=== PATIENT | male | born 1960 | race Caucasian/White ===

== ENCOUNTER → 2021-06-28 | Outpatient (CLI) | payer BC ==
--- NOTE | 2021-06-28 09:23 | XR ---
EXAMINATION TYPE: XR foot complete LT DATE OF EXAM: 06/28/2021 COMPARISON: NONE HISTORY: Pain TECHNIQUE: Three views are submitted. FINDINGS: The osseous structures are intact. There is no acute fracture or dislocation. Arthropathy of the f irst MTP joint. There is soft tissue edema overlying the third digit. Increased density of the distal phalanx noted. Recommend triple phase bone scan to assess for osteomyelitis. IMPRESSION: 1. Soft tissue edema overlying the distal third digit with increased density throughout the distal ph alanx recommend triple phase bone scan to assess for osteomyelitis.
--- NOTE | 2021-06-28 14:11 | NM ---
EXAMINATION TYPE: NM bone 3 phase DATE OF EXAM: 06/28/2021 COMPARISON: X-ray 06/28/2020 HISTORY: Swelling left third toe Triple phase bone scintigraphy was performed following the injection of 23.0 mCi Tc 99m MDP. Immedia te images and 4 hours post injection images acquired. FINDINGS: Increased flow to the distal left. There is increased soft tissue uptake within the soft tissues of t he distal left third toe. Delayed images demonstrate increased uptake involving the distal margin lef t third toe. There also is abnormal uptake involving the right first MTP joint. IMPRESSION: 1. Cellulitis with osteomyelitis distal phalanx left third toe 2. Probable arthropathy of the right first MTP joint. No x-rays available for comparison
== END | disposition home or self-care (01) ==
LOC: RADNMMAIN 07:16
PROVIDERS: ATTEND Podiatrist Foot & Ankle Surgery
DX: L03.032 Cellulitis of left toe (principal); M86.8X7 Other osteomyelitis, ankle and foot
CPT/HCPCS: 73630; 78315; A9503

== ENCOUNTER 2022-05-14 00:30 | Emergency (ER) | payer BC ==
[2022-05-14 00:46] VITALS: RESP 18; TEMP 97.8
[2022-05-14] MEDS ORDERED: SODIUM CHLORIDE 0.9% 1,000 ML IV STA (01:08)
--- NOTE | 2022-05-14 01:16 | ED ---
General Adult HPI - General Chief complaint: Recheck/Abnormal Lab/Rx Stated complaint: High Blood Pressure, Headache, facial numbness Time Seen by Provider: 05/14/22 00:50 Source: patient, RN notes reviewed Mode of arrival: ambulatory Limitations: no limitations - History of Present Illness Initial comments: 62-year-old male presents to the emergency department for evaluation of symptoms that resolved prior to arrival. Patient states this evening he was out in the [place] with his buddies when he experienced an onset of head pressure, lightheadedness, and numbness to the mouth. He walked back to his vehicle and went to the local [facility] where his blood pressure was found to be elevated. Reports his symptoms were somewhat worsened with lateral movement of his eyes. States he then drove 2 hours home and then decided to come to the emergency department for evaluation. Patient states he does have a history of high blood pressure and takes a daily medication which he missed a dose tonight. Current symptoms include mild posterior headache and slight residual numbness to his lips. At this time, patient denies fever, chills, blurry vision, dizziness, confusion, chest pain, difficulty breathing, shortness of breath, abdominal nikolay n, nausea, vomiting, diarrhea, dysuria, weakness, or poor coordination. - Related Data Home Medications Medication Instructions Recorded Confirmed amLODIPine BESYLATE [Norvasc] 10 mg PO DAILY 01/24/15 02/07/16 Aspirin 81 mg PO DAILY 01/25/15 02/07/16 Levothyroxine Sodium [Synthroid] 75 mcg PO DAILY 01/26/16 02/07/16 lisinopriL [Zestril] 10 mg PO DAILY 01/26/16 02/07/16 Allergies Allergy/AdvReac Type Severity Reaction Status Date / Time adhesive Allergy Unknown BLISTERS Verified 05/14/22 00:46 FROM CARDIAC ELECTRODES. Review of Systems ROS Statement: Those systems with pertinent positive or pertinent negative responses have been documented in the HPI. ROS Other: All systems not noted in ROS Statement are negative. Past Medical History Past Medical History: Hypertension, Thyroid Disorder Additional Past Medical History / Comment(s): HYPOTHYROID, BIT HIS TONGUE A WEEK AGO AND SOME OF THE TISSUE IS PROTRUDING. History of Any Multi-Drug Resistant Organisms: None Reported Past Surgical History: No Surgical Hx Reported Additional Past Surgical History / Comment(s): COLONOSCOPY Past Anesthesia/Blood Transfusion Reactions: No Reported Reaction Past Psychological History: No Psychological Hx Reported Smoking Status: Never smoker Past Alcohol Use History: Occasional Past Drug Use History: None Reported - Past Family History Father Family Medical History: Cancer Additional Family Medical History / Comment(s): STOMACH CANCER Mother Family Medical History: Coronary Artery Disease (CAD), Myocardial Infarction ([place]) General Exam Limitations: no limitations (This is a well-developed, well-nourished male in no acute distress. Initial temperature 97.8, pulse 90, respirations 18, blood pressure 134/81, pulse ox 100% on room air.) General appearance: alert, in no apparent distress Head exam: Present: atraumatic, normocephalic, normal inspection Eye exam: Present: normal appearance, PERRL, EOMI. Absent: scleral icterus, conjunctival injection, periorbital swelling, periorbital tenderness ENT exam: Present: normal exam, normal oropharynx, mucous membranes moist, TM's normal bilaterally Neck exam: Present: normal inspection, full ROM. Absent: tenderness, meningismus, lymphadenopathy Respiratory exam: Present: normal lung sounds bilaterally. Absent: respiratory distress, wheezes, rales, rhonchi, stridor, chest wall tenderness Cardiovascular Exam: Present: regular rate, normal rhythm, normal heart sounds. Absent: systolic murmur, diastolic murmur, rubs, gallop, clicks GI/Abdominal exam: Present: soft, normal bowel sounds. Absent: distended, tenderness, guarding, rebound, rigid Extremities exam: Present: normal inspection, full ROM, normal capillary refill. Absent: pedal edema Back exam: Present: normal inspection, full ROM. Absent: CVA tenderness (R), CVA tenderness (L) Neurological exam: Present: alert, oriented X3, CN II-XII intact, normal gait Expanded Patient oriented to: Present: person, place, time Speech: Present: fluid speech Cranial nerves: EOM's Intact: Normal, Tongue Deviation: Normal, Nystagmus: Normal, Facial Palsy with Forehead Movement: Normal Cerebellar function: Romberg: Normal Upper motor neuron: Pronator Drift: Normal Motor strength exam: RUE: 5, LUE: 5, RLE: 5, LLE: 5 Eye Response: (4) open spontaneously Motor Response: (6) obeys commands Verbal Response: (5) oriented Valier Total: 15 Psychiatric exam: Present: normal affect, normal mood Skin exam: Present: warm, dry, intact, normal color. Absent: rash Course Vital Signs 05/14/22 05/14/22 05/14/22 00:42 01:45 02:00 Temperature 97.8 F Pulse Rate 90 74 76 Respiratory 18 Rate Blood Pressure 134/81 144/88 150/87 O2 Sat by Pulse 100 98 Oximetry 05/14/22 05/14/22 03:00 04:42 Temperature Pulse Rate 76 74 Respiratory Rate Blood Pressure 150/87 110/68 O2 Sat by Pulse Oximetry - Reevaluation(s) Reevaluation #1: 05/14/22 03:12 Patient continues to rest comfortably with no return of symptoms. He was given Tylenol for residual headache with improvement. Able to tolerate oral intake without difficulty. He will be discharged home to follow-up with. Patient is agreeable with this plan of care. Medical Decision Making - Medical Decision Making This is a pleasant 62-year-old male with a history of hypertension who presents to the emergency department for evaluation of symptoms that resolved prior to arrival. Patient reports elevated blood pressure accompanied by posterior headache and a sense of lightheadedness that occurred while he was outdoors hunting this evening. States after traveling 2 hours home his symptoms improved, but was concerned therefore came to the ED for evaluation. Upon exam, patient is well appearing and in not acute distress. He has no focal neurological deficits. Initial blood pressure is 134/81. EKG shows normal sinus rhythm area and chest x-ray is unremarkable. CT of the brain is negative. Laboratory studies were reviewed and are within normal limits. Patient was given Tylenol for mild headache with improvement. Discussed workup with patient explaining that there were no symptoms or exam findings concerning for TIA or CVA. Per his history, there is some suspicion that this was an episode of vertigo with spontaneous resolution. He will be discharged home to continue t aking his home medications as prescribed and to follow up with his PCP within the next 48 hours. Strict return parameters were discussed in detail. Patient verbalizes understanding and agrees with this plan. Attending: Robina. - Lab Data Result diagrams: 05/14/22 01:25 05/14/22 01:25 Lab Results 05/14/22 05/14/22 05/14/22 Range/Units 01:25 01:25 01:25 WBC 7.5 (3.8-10.6) k/uL RBC 5.28 (4.30-5.90) m/uL Hgb 15.0 (13.0-17.5) gm/dL Hct 45.7 (39.0-53.0) % MCV 86.6 (80.0-100.0) fL MCH 28.3 (25.0-35.0) pg MCHC 32.7 (31.0-37.0) g/dL RDW 12.6 (11.5-15.5) % Plt Count 208 (150-450) k/uL MPV 7.4 Neutrophils % 82 % Lymphocytes % 10 % Monocytes % 6 % Eosinophils % 0 % Basophils % 1 % Neutrophils # 6.1 (1.3-7.7) k/uL Lymphocytes # 0.8 L (1.0-4.8) k/uL Monocytes # 0.5 (0-1.0) k/uL Eosinophils # 0.0 (0-0.7) k/uL Basophils # 0.1 (0-0.2) k/uL PT (9.0-12.0) sec INR (<1.2) Sodium 137 (137-145) mmol/L Potassium 3.5 (3.5-5.1) mmol/L Chloride 104 (98-107) mmol/L Carbon Dioxide 24 (22-30) mmol/L Anion Gap 9 mmol/L BUN 13 (9-20) mg/dL Creatinine 0.98 (0.66-1.25) mg/dL Est GFR (CKD-EPI)AfAm >90 (>60 ml/min/1.73 sqM) Est GFR (CKD-EPI)NonAf 83 (>60 ml/min/1.73 sqM) Glucose 108 H (74-99) mg/dL Calcium 8.8 (8.4-10.2) mg/dL Total Bilirubin 1.2 (0.2-1.3) mg/dL AST 28 (17-59) U/L ALT 32 (4-49) U/L Alkaline Phosphatase 84 (38-126) U/L Troponin I <0.012 (0.000-0.034) ng/mL Total Protein 7.4 (6.3-8.2) g/dL Albumin 4.5 (3.5-5.0) g/dL 05/14/22 Range/Units 01:50 WBC (3.8-10.6) k/uL RBC (4.30-5.90) m/uL Hgb (13.0-17.5) gm/dL Hct (39.0-53.0) % MCV (80.0-100.0) fL MCH (25.0-35.0) pg MCHC (31.0-37.0) g/dL RDW (11.5-15.5) % Plt Count (150-450) k/uL MPV Neutrophils % % Lymphocytes % % Monocytes % % Eosinophils % % Basophils % % Neutrophils # (1.3-7.7) k/uL Lymphocytes # (1.0-4.8) k/uL Monocytes # (0-1.0) k/uL Eosinophils # (0-0.7) k/uL Basophils # (0-0.2) k/uL PT 11.0 (9.0-12.0) sec INR 1.0 (<1.2) Sodium (137-145) mmol/L Potassium (3.5-5.1) mmol/L Chloride (98-107) mmol/L Carbon Dioxide (22-30) mmol/L Anion Gap mmol/L BUN (9-20) mg/dL Creatinine (0.66-1.25) mg/dL Est GFR (CKD-EPI)AfAm (>60 ml/min/1.73 sqM) Est GFR (CKD-EPI)NonAf (>60 ml/min/1.73 sqM) Glucose (74-99) mg/dL Calcium (8.4-10.2) mg/dL Total Bilirubin (0.2-1.3) mg/dL AST (17-59) U/L ALT (4-49) U/L Alkaline Phosphatase (38-126) U/L Troponin I (0.000-0.034) ng/mL Total Protein (6.3-8.2) g/dL Albumin (3.5-5.0) g/dL - EKG Data EKG shows normal: sinus rhythm Rate: normal EKG Comments: EKG obtained at 01:20 shows sinus rhythm with nonspecific T-wave abnormality. Ventricular rate 90, IA interval 162, QRS duration 83, QT/QTC 354/402. Interpretation borderline ECG. - Radiology Data Radiology results: report reviewed, image reviewed CT of the brain without contrast was obtained. Report was reviewed in its entirety. Impression per Dr. Dawson is negative unenhanced head CT scan. Two-view chest x-ray was obtained. Report was reviewed in its entirety. Impression per Dr. Dawson is normal chest. No change. Disposition Clinical Impression: Episodic lightheadedness Disposition: HOME SELF-CARE Condition: Stable Instructions (If sedation given, give patient instructions): Vertigo (ED) Additional Instructions: Continue taking your home medications as prescribed. Follow-up with your PCP as scheduled today. Return to the emergency department with any new, worsening, or concerning symptoms including confusion, speech changes, weakness, or return of symptoms. Is patient prescribed a controlled substance at d/c from ED?: No Referrals: Pasha Fuentes MD [REFERRING] - 1-2 days Time of Disposition: 04:13
[2022-05-14 01:45] LABS: Basophils # (A) 0.1 k/uL (0-0.2); Basophils % (A) 1 %; Eosinophils % (A) 0 %; HCT 45.7 % (39.0-53.0); Lymphocytes # (A) 0.8 k/uL (1.0-4.8); Lymphocytes % (A) 10 %; MCH 28.3 pg (25.0-35.0); MCHC 32.7 g/dL (31.0-37.0); MCV 86.6 fL (80.0-100.0); Mean Platelet Volume 7.4; Monocytes # (A) 0.5 k/uL (0-1.0); Monocytes % (A) 6 %; Neutrophils # (A) 6.1 k/uL (1.3-7.7); Neutrophils % (A) 82 %; Platelet Count 208 k/uL (150-450); RBC 5.28 m/uL (4.30-5.90); RDW 12.6 % (11.5-15.5); WBC 7.5 k/uL (3.8-10.6)
--- NOTE | 2022-05-14 01:47 | XR ---
EXAMINATION TYPE: XR chest 2V DATE OF EXAM: 05/14/2022 COMPARISON: 01/24/2015 HISTORY: Chest pain. Short of breath TECHNIQUE: FINDINGS: Heart and mediastinum are normal. Lungs are clear. Diaphragm is normal. Bony thorax appears normal. IMPRESSION: Normal chest. No change.
--- NOTE | 2022-05-14 01:51 | CT ---
EXAMINATION TYPE: CT brain wo con DATE OF EXAM: 05/14/2022 COMPARISON: None HISTORY: high blood pressure, lips tingling, headache. CT DLP: 1172.7 mGycm Automated exposure control for dose reduction was used. Ventricles and sulci appear normal. There is no mass effect or midline shift. There is no sign of int racranial hemorrhage. Calvarium is intact. There is normal aeration of the mastoid sinuses. IMPRESSION: Negative unenhanced head CT scan.
[2022-05-14 01:54] LABS: ALT 32 U/L (4-49); AST 28 U/L (17-59); African American GFR (CKD) >90 (>60 ml/min/1.73 sqM); Albumin 4.5 g/dL (3.5-5.0); Alkaline Phosphatase 84 U/L (38-126); Anion Gap 9 mmol/L; Blood Urea Nitrogen 13 mg/dL (9-20); Calcium 8.8 mg/dL (8.4-10.2); Carbon Dioxide 24 mmol/L (22-30); Chloride 104 mmol/L (98-107); Glucose 108 mg/dL (74-99); Non-African American GFR(CKD) 83 (>60 ml/min/1.73 sqM); Potassium 3.5 mmol/L (3.5-5.1); Sodium 137 mmol/L (137-145); Total Bilirubin 1.2 mg/dL (0.2-1.3); Total Protein 7.4 g/dL (6.3-8.2)
[2022-05-14] MEDS ORDERED: ACETAMINOPHEN TAB 500 MG TAB PO STA (02:08)
[2022-05-14 04:42] VITALS: BP 110/68; PULSE 74
== END 2022-05-14 04:42 | disposition home or self-care (01) ==
LOC: EC 00:30
DX: R42 Dizziness and giddiness (principal); E07.9 Disorder of thyroid, unspecified; Z79.899 Other long term (current) drug therapy; Z82.49 Family history of ischemic heart disease and other diseases of the circulatory system; Z91.048 Other nonmedicinal substance allergy status
CPT/HCPCS: 36415; 70450; 71046; 80053; 84484; 85025; 85610; 93005

== ENCOUNTER → 2025-01-21 | Outpatient (CLI) | payer BC ==
[2025-01-21 15:16] LABS: HCT 44.3 % (39.6-50.0); MCH 29.3 pg (27.0-32.0); MCHC 33.9 g/dL (32.0-37.0); MCV 86.5 FL (80.0-97.0); Mean Platelet Volume 10.4 FL (9.5-12.2); NRBC Per 100 WBC 0 X 10*3/uL (0.00-0.01); Platelet Count 194 X 10*3/uL (140-440); RBC 5.12 X 10*6/uL (4.40-5.60); RDW 12.5 % (11.5-14.5); WBC 6.99 X 10*3/uL (4.50-10.00)
[2025-01-21 15:25] LABS: Blood Urea Nitrogen 14.4 mg/dL (9.0-27.0); Carbon Dioxide 29.3 mmol/L (21.6-31.8); Chloride 100 mmol/L (96-109); Potassium 3.8 mmol/L (3.5-5.5); Sodium 141 mmol/L (135-145)
== END | disposition home or self-care (01) ==
LOC: LABPAT 11:23
PROVIDERS: ATTEND Internal Medicine Interventional Cardiology
DX: Z01.812 Encounter for preprocedural laboratory examination (principal); R07.9 Chest pain, unspecified
CPT/HCPCS: 80051; 82565; 84520; 85027

== ENCOUNTER 2025-01-27 06:01 | Day surgery (SDC) | payer BC ==
[2025-01-25 10:57] VITALS: BMI 26.4
[~2025-01-27 06:01] MED LIST: ALPRAZolam 0.25 MG TAB PO PRN; ALPRAZolam 0.5 MG TAB PO PRN; NITROGLYCERIN SL TABS 0.4 MG TAB SUBLINGUAL PRN
[2025-01-27] MEDS: SODIUM CHLORIDE 0.9% 1,000 ML in EMPTY BAG 1 BAG IV ONE (07:05)
[2025-01-27] MEDS: ASPIRIN 325 MG TAB PO ONE (07:05)
[2025-01-27] MEDS: ATORVASTATIN 80 MG TAB PO ONE (07:05)
[2025-01-27] MEDS: IV FLUID CONTINUATION 1,000 ML IV ONE (07:06)
[2025-01-27] MEDS: HEPARIN SODIUM,PORCINE 10,000 UNIT in SODIUM CHLORIDE 0.9% 1,000 ML IRRIGATION PRN (07:31)
[2025-01-27] MEDS: HEPARIN SODIUM,PORCINE (1 ML) 2,500 UNIT in SODIUM CHLORIDE 0.9% 250 ML IRRIGATION PRN (07:31)
[2025-01-27] MEDS: MIDAZOLAM 2 MG/2 ML VIAL IVP ONE (08:01)
[2025-01-27] MEDS: VERAPAMIL SYRINGE (5 MG/10 ML) INTRAARTER ONE (08:01)
[2025-01-27] MEDS: LIDOCAINE 1% INJ 10MG/ML (20 ML MDV) SQ ONE (08:01)
[2025-01-27] MEDS: HEPARIN SODIUM 1,000 UN/ML (10ML VL) IVP ONE (08:05)
[2025-01-27] MEDS: TICAGRELOR 90 MG TAB PO ONE (08:23)
[2025-01-27] MEDS: IOPAMIDOL-370 100ML BTL INJ ONE ×2 (08:34→08:45)
[2025-01-27] MEDS: PHENYLEPHRINE-0.9% NACL SYG 1,000 MCG/10 ML SYRINGE IVP ONE (08:40)
[2025-01-27] MEDS ORDERED: NITROGLYCERIN SL TABS 0.4 MG TAB SUBLINGUAL PRN (08:45)
[2025-01-27] MEDS ORDERED: RX INFO: IV CONTRAST WAS GIVEN 1 EACH MISC MISCELLANE PRN (08:45)
[2025-01-27] MEDS ORDERED: ZOLPIDEM 5 MG TAB PO PRN (08:45)
[2025-01-27] MEDS ORDERED: ATROPINE SULFATE 0.1 MG/ML 10ML SYRINGE IV PRN (08:45)
[2025-01-27] MEDS ORDERED: MAG HYDROX/AL HYDROX/SIMETH 30 ML CUP PO PRN (08:45)
--- NOTE | 2025-01-27 08:49 | P.PCN ---
Date of Procedure: 01/27/25 Operative Findings: CARDIAC CATHETERIZATION AND PERCUTANEOUS CORONARY INTERVENTION PERFORMING PHYSICIAN: Andrea Garcia MD, [facility] PROCEDURE PERFORMED: 1. Selective right and left coronary angiogram and left heart catheterization 2. Successful stenting of mid LAD using 4.0 x 18 mm Xience DAMIÁN with an excel lent angiographic results 3. Adjunctive use of IVUS and IFR 4. Ultrasound-guided access of the right radial artery INDICATION: Symptomatic 64-year-old gentleman with abnormal stress echocardiogram COMPLICATION: None APPROACH: Right radial artery LEVEL OF SEDATION: Moderate with the sedation time off 41 minutes PROCEDURE DESCRIPTION: After obtaining informed consent the patient was brought to the cardiac Medical Underwriter with right radial artery was cannulated using micropuncture technique under ultrasound guidance a micropuncture wire passed easily then I placed a 6 Yemeni 11 cm sheath at the right radial artery and give the patient 2 mg of verapamil intra-arterial and 5000's of heparin intravenous with continuous ACT monitoring and additional heparin was given based on the ACT. Selective right and left coronary angiogram performed using JR4 and JL 3.5 catheters. Left heart catheterization was performed using the JR4 catheter which crossed the aortic valve. After that I decided to start by doing an IFR of the LAD. After zeroing Dobler wire and equalizing between the Dobler wire and guiding catheter which was JL 3.5 guiding catheter the left main was engaged and subsequently it was wired using the Dobler wire. We did an IFR and that came into 0.82. At that point I decided to intervene on the LAD with IVUS was performed and showed a diameter between 3.75 to 4 mm. Predilatation was performed using 3.5 mm balloon before I deployed 4.0 x 18 mm stent which was postdilated using 4 mm noncompliant balloon was final angiogram showing excellent angiographic results and the procedure was completed with no complication SELECTIVE CORONARY ANGIOGRAM: The right coronary artery: Large-caliber vessel and a dominant vessel with mild disease only Left main: Is angiographically normal The left circumflex: Large-caliber vessel nondominant vessel with no evidence of high-grade stenosis The left anterior descending artery: Has intermediate to severe lesion in the midportion documented to be flow- limiting by Doppler wire HEMODYNAMICS: LVEDP was 12 mmHg with no significant gradient across aortic valve CONCLUSION: 1. Severe disease involving the mid LAD. I did perform PCI of the LAD as described above 2. Normal left-sided filling pressure POSTPROCEDURE MANAGEMENT: 1. Dual antiplatelet therapy using aspirin and Brilinta for 6 month 2. Aggressive cholesterol control 3. Follow-up with the patient
[2025-01-27] MEDS ORDERED: NON FORMULARY DRUG (Vitamin B Complex [Vitamin B Complex] 1 EACH Capsule) PO SCH (09:00)
[2025-01-27] MEDS ORDERED: ACETAMINOPHEN TAB 325 MG TAB PO PRN (11:49)
[2025-01-27] MEDS: hydroCHLOROthiazide 25 MG TAB PO SCH (11:50)
[2025-01-27] MEDS: amLODIPine 10 MG TAB PO SCH ×2 (11:50→21:21)
[2025-01-27] MEDS: ATORVASTATIN 20 MG TAB PO SCH ×2 (11:50→21:20)
[2025-01-27] MEDS: LEVOTHYROXINE 75 MCG TAB PO SCH (11:51)
[2025-01-27] MEDS: TICAGRELOR 90 MG TAB PO SCH (11:51)
[2025-01-27] MEDS: METOPROLOL TARTRATE 25 MG TAB PO SCH (11:51)
[2025-01-27] MEDS: SODIUM CHLORIDE 0.9% 1,000 ML in EMPTY BAG 1 BAG IV SCH (11:53)
[2025-01-28 02:27] VITALS: RESP 15
[2025-01-28 04:07] LABS: African American GFR (CKD) >90 (>60 ml/min/1.73 sqM); Non-African American GFR(CKD) 82 (>60 ml/min/1.73 sqM)
[2025-01-28 07:38] VITALS: BP 112/67; PULSE 58; TEMP 97.5
--- NOTE | 2025-01-28 08:29 | P.DS ---
Providers Attending physician: Andrea Garcia Consults: 01/27/25 08:45 Consult Physician Routine Consulting Provider: [facility] Consult Reason/Comments: Post Interventional Patient Do you want consulting provider notified?: Already Contacted Primary care physician: Memo Black [facility] Course: The patient is a pleasant 64-year-old gentleman who underwent yesterday heart catheterization and PCI of the LAD He was seen and evaluated this morning with he is asymptomatic and hemodynamically stable. The patient is going to be discharged home on dual antiplatelet therapy along with a statin and I will follow-up with the patient next week in the office Plan - Discharge Summary Discharge Rx Participant: No New Discharge Prescriptions: New Aspirin 81 mg PO DAILY #90 tab Ticagrelor [Brilinta] 90 mg PO BID #180 tab Continue amLODIPine BESYLATE [Norvasc] 10 mg PO DAILY Levothyroxine Sodium [Synthroid] 75 mcg PO DAILY hydroCHLOROthiazide 25 mg PO DAILY Vitamin B Complex 1 each PO DAILY Metoprolol Tartrate 25 mg PO DAILY Rosuvastatin [Crestor] 10 mg PO DAILY Discharge Medication List amLODIPine BESYLATE [Norvasc] 10 mg PO DAILY 01/24/15 [History] Levothyroxine Sodium [Synthroid] 75 mcg PO DAILY 01/26/16 [History] Metoprolol Tartrate 25 mg PO DAILY 01/25/25 [History] Rosuvastatin [Crestor] 10 mg PO DAILY 01/25/25 [History] Vitamin B Complex 1 each PO DAILY 01/25/25 [History] hydroCHLOROthiazide 25 mg PO DAILY 01/25/25 [History] Aspirin 81 mg PO DAILY #90 tab 01/28/25 [Rx] Ticagrelor [Brilinta] 90 mg PO BID #180 tab 01/28/25 [Rx] Follow up Appointment(s)/Referral(s): Andrea Garcia MD [STAFF PHYSICIAN] - 1 Week (OFFICE WILL CALL WITH APPOINTMENT) Patient Instructions/Handouts: Moderate Sedation (DC), After Radial Heart Catheterization (GEN) Activity/Diet/Wound Care/Special Instructions: NO DRIVING FOR TWO DAYS. OK TO SHOWER TOMORROW BUT NO SOAKING IN TUBS, SWIMMING, OR SOAKING PUNCTURE LIKE IMMERSING IN DISH WATER FOR FIVE DAYS TO PREVENT RISK OF INFECTION. AVOID PUSHING PULLING LIFTING MORE THAN 5LBS FOR FIVE DAYS. SIGNS OF INFECTION IE: FEVER, RASH, UNUSUAL DRAINAGE OR HARD KNOT OR SWELLING OVER INCISION SITE CONTACT DRStu TO BE EVALUATED. IF PUNCTURE SITE BLEEDS, APPLY FIRM PRESSURE AND GO TO ER. DO NOT DRIVE SELF. TYLENOL FOR PAIN NEEDED/DIRECTED FOR PAIN.
== END 2025-01-28 09:44 | disposition home or self-care (01) ==
LOC: CATHCVL 06:01 → 6NMEDSUR 11:20 → CATHCVL 01-28 09:44
PROVIDERS: ATTEND Internal Medicine Interventional Cardiology
DX: R94.39 Abnormal result of other cardiovascular function study (principal); E03.9 Hypothyroidism, unspecified; I10 Essential (primary) hypertension; Z79.01 Long term (current) use of anticoagulants; Z79.02 Long term (current) use of antithrombotics/antiplatelets; Z79.82 Long term (current) use of aspirin; Z79.899 Other long term (current) drug therapy; Z88.8 Allergy status to other drugs, medicaments and biological substances
CPT/HCPCS: 93005; 92978; 93458; 93799; 82565; C9600; C1887; C1769 ×2; C1894; C1753; C1874; C1725 ×3; J2250; J1644 ×3; J2003; Q9967; J2371